=== PATIENT | male | born 1990 | race Caucasian/White ===

== ENCOUNTER 2023-12-30 07:26 | Emergency (ER) | payer SELFPAY ==
[2023-12-30 07:33] VITALS: BP 141/107; PULSE 107; RESP 18; TEMP 36.3; O2SAT 99; BMI 28.0
--- NOTE | 2023-12-30 08:24 | ED.WOUNDLAC ---
HPI - Wound/Laceration General Chief Complaint: Wound/Laceration Stated Complaint: cut his finger Time Seen by Provider: 12/30/23 08:19 Source: patient Mode of arrival: Ambulatory History of Present Illness HPI narrative: 33-year-old male. Is up-to-date on his tetanus. Is right-hand dominant. Is here for evaluation of a cut to his right index finger. He states he was concerned that he cut a tendon. Is also concerned that he cut an artery because there was ?bubbling? of blood. No interventions prior to arrival Related Data Allergies Allergy/AdvReac Type Severity Reaction Status Date / Time amoxicillin AdvReac Unknown Rash Verified 12/30/23 07:36 Review of Systems Constitutional Constitutional: Reports system reviewed and no additional complaints, except as documented Musculoskeletal Musculoskeletal: Reports system reviewed and no additional complaints, except as documented Integumentary/Breasts Skin/Breast: Reports system reviewed and no additional complaints, except as documented Neurologic Neurologic: Reports system reviewed and no additional complaints, except as documented Patient History Social History Smoking Status: Current every day smoker Smoking Status: Current every day smoker tobacco type: cigarettes alcohol intake frequency: 0-2 drinks per day Substance Use Type: does not use Exam Initial Vital Signs Initial Vital Signs: Vital Signs Temperature 97.4 F L 12/30/23 07:33 Pulse Rate 107 H 12/30/23 07:33 Respiratory Rate 18 12/30/23 07:33 Blood Pressure 141/107 H 12/30/23 07:33 Pulse Oximetry 99 12/30/23 07:33 Oxygen Delivery Method Room Air 12/30/23 07:33 Skin Other: 0.5 cm cut over the right index finger, volar aspect, PIP joint on the radial side. Extrem Other: Patient is unwilling/unable to flex and extend at the PIP and DIPJ joint. Procedures Orthopedic Splinting/Casting Injury #1: Side: right Upper Extremity Injury Location: finger Upper Extremity Immobilizer: aluminum form splint Post splinting neuro exam: no change Post splinting vascular exam: no change Placed by: Nursing Course Vital Signs Vital signs: Vital Signs - 8 hr 12/30/23 07:33 Temperature 97.4 F L Pulse Rate 107 H Respiratory Rate 18 Blood Pressure 141/107 H Pulse Oximetry 99 Oxygen Delivery Method Room Air MDM - Wound/Laceration MDM Narrative Medical decision making narrative: Bleeding is controlled. Neurologically intact. Small laceration over the volar aspect of the PIP joint of the right index finger. Patient is unwilling/unable to flex and extend at the PIP and DIPJ joint to command however nursing staff states that he was flexing his finger on his own. The wound was irrigated. Given the size of the wound no closure needed here in the ER. He was placed in a aluminum splint with instructions to follow-up with orthopedic surgery. Discharge Plan Departure Patient Disposition: Home Clinical Impression: Finger laceration Instructions: DI for Minor Laceration Activity Restrictions/Additional Instructions: That you recommend that you leave the splint in place until you follow-up with the orthopedic surgeons. You can contact them with the number provided below for a follow-up. Return to the emergency department for new symptoms. Referrals: Geo Ryan MD [Physician] - Stand Alone Forms: Patient Portal/API
[2023-12-30 08:58] VITALS: BP 152/87; PULSE 91; RESP 18; TEMP 36.7; O2SAT 100
== END 2023-12-30 08:58 | disposition home or self-care (01) ==
PROVIDERS: Emergency Provider Emergency Medicine
DX: S61.210A Laceration without foreign body of right index finger without damage to nail, initial encounter (principal); X58.XXXA Exposure to other specified factors, initial encounter
CPT/HCPCS: 29130; 99282

== ENCOUNTER → 2024-04-05 15:11 | Outpatient (CLI) | payer MEDICAID, SELFPAY ==
--- NOTE | 2024-04-05 15:13 | DI.MRI.S_ITS ---
PROCEDURE: MR HAND RT WO CON INDICATIONS: FLEXOR TENDON RUPTURE RT INDEX FINGER TECHNIQUE: Noncontrast coronal T1 spin echo and T2 fast spin echo with fat saturation, axial proton density fast spin echo and T2 fast spin echo with fat saturation, sagittal T1 spin echo and STIR through the hand and fingers. COMPARISON: None. FINDINGS: Image quality: Excellent. Bones: Screw fixation at the 1st proximal phalangeal base, creating artifacts and limits evaluation. Small T2 hyperintense lesion in the hamate, nonspecific. No acute fracture. Interphalangeal joint(s): The accessory and proper collateral ligaments appear intact. The volar plate demonstrates normal morphology. The extensor central slips appear intact on sagittal images. Metacarpophalangeal joint(s): The accessory and proper collateral ligaments appear intact, as well as the volar plate and adjacent deep transverse metacarpal ligaments. The sagittal bands of the extensor benton appear normal. Extensor apparatus: The central slips insert normally on the middle phalangeal base. The conjoint and terminal tendons insert normally on the distal phalangeal bases. More proximal portions of the extensor tendons also appear normal. Flexor apparatus: There is complete rupture both the flexor digitorum superficialis and profundus of the 2nd digit, at the level of the 2nd middle phalanx, with associated soft tissue edema. The flexor tendons of the 2nd digit is coiled and markedly retracted to the level of the metacarpal head. The 3rd, 4th, in the 5th flexor tendons are unremarkable. Soft tissues: A there is a cluster of ganglion cyst volar to the distal radius, deep to the flexor musculature, measuring 2.7 cm overall. IMPRESSION: 1. Complete rupture of the flexor tendons of the 2nd digit, at the level of the 2nd middle phalanx, with marked tendon retraction to the level of the metacarpal head. 2. 2.7 cm ganglion cyst volar to the distal radius. Dictated by: Nicki Del Cid M.D. on 04/05/2024 at 17:15 Approved by: Nicki Del Cid M.D. on 04/05/2024 at 17:26
== END ==
LOC: MRI 15:12
PROVIDERS: Referring Provider Physician Assistant; Visit Provider Physician Assistant
DX: S66.110A Strain of flexor muscle, fascia and tendon of right index finger at wrist and hand level, initial encounter (principal); M67.431 Ganglion, right wrist
CPT/HCPCS: 73218